=== PATIENT | male | born 1980 | race Hispanic/Latino ===

== ENCOUNTER → 2023-03-25 10:57 | Outpatient (REF) | payer OTHER, SELFPAY ==
[2023-03-25 11:32] LABS: Hematocrit 46.2 % (39.0-52.0); Hemoglobin 16.3 g/dL (13.0-18.0); Mean Corp Hgb Conc. 35.3 g/dL (33.0-37.0); Mean Corpuscular Hgb 29.2 pg (27.0-31.0); Mean Corpuscular Volume 82.6 fL (80.0-94.0); Mean Platelet Volume 8.6 fL (7.4-10.4); Platelet Count 297 10^3/uL (130-400); Red Blood Cell Count 5.59 10^6/uL (4.70-6.10); Red Cell Dist. Width 12.8 % (11.5-14.5); White Blood Cell Count 8.3 10^3/uL (4.8-10.8)
[2023-03-25 12:40] LABS: Glycohemoglobin (HgbA1c) 7.7 % (4.0-5.6)
[2023-03-25 13:02] LABS: ALT (SGPT) 52 U/L (0-50); AST (SGOT) 43 U/L (17-59); Albumin 4.3 g/dl (3.5-5.0); Alkaline Phosphatase 70 U/L (38-126); Blood Urea Nitrogen 15 mg/dl (9-20); Calcium 9.4 mg/dl (8.4-10.2); Carbon Dioxide 25 mmol/L (22-30); Chloride 101 mmol/L (98-107); Glucose 120 mg/dl (70-99); HDL Cholesterol 54 mg/dl; LDL Cholesterol, Calculated 101 mg/dl; Potassium 4.2 mmol/L (3.5-5.1); Sodium 137 mmol/L (135-145); Total Bilirubin 1.1 mg/dl (0.2-1.3); Total Cholesterol 173 mg/dl (50-199); Total Protein 7.4 g/dl (6.3-8.2); Triglyceride 90 mg/dl (10-149); Very Low Density Lipoprotein 18 mg/dl (0-30); eGFR > 60.00
[2023-03-25 13:38] LABS: TSH Reflex To Free T4 0.81 uIU/ml (0.47-4.68)
== END ==
LOC: CLINIC 10:57
PROVIDERS: ATTENDING PHYSICIAN Nurse Practitioner Adult Health
DX: Z00.00 Encounter for general adult medical examination without abnormal findings (principal); E11.9 Type 2 diabetes mellitus without complications
CPT/HCPCS: 36415; 80053; 80061; 83036; 84443; 85027

== ENCOUNTER → 2023-08-05 09:43 | Outpatient (REF) | payer OTHER, SELFPAY ==
[2023-08-05 11:29] LABS: ALT (SGPT) 78 U/L (0-50); AST (SGOT) 53 U/L (17-59); Albumin 4.8 g/dl (3.5-5.0); Alkaline Phosphatase 71 U/L (38-126); Blood Urea Nitrogen 12 mg/dl (9-20); Calcium 9.2 mg/dl (8.4-10.2); Carbon Dioxide 28 mmol/L (22-30); Chloride 102 mmol/L (98-107); Glucose 116 mg/dl (70-99); Potassium 4.7 mmol/L (3.5-5.1); Sodium 138 mmol/L (135-145); Total Bilirubin 1.1 mg/dl (0.2-1.3); eGFR > 60.00
[2023-08-05 13:49] LABS: Glycohemoglobin (HgbA1c) 7.1 % (4.0-5.6)
== END ==
LOC: CLINIC 09:43
PROVIDERS: ATTENDING PHYSICIAN Nurse Practitioner Adult Health
DX: E11.9 Type 2 diabetes mellitus without complications (principal)
CPT/HCPCS: 36415; 80053; 83036

== ENCOUNTER → 2024-02-23 07:37 | Outpatient (REF) | payer OTHER, SELFPAY ==
[2024-02-23 08:51] LABS: Glycohemoglobin (HgbA1c) 7.6 % (4.0-5.6)
[2024-02-23 08:53] LABS: ALT (SGPT) 80 U/L (0-50); AST (SGOT) 45 U/L (17-59); Albumin 4.5 g/dl (3.5-5.0); Alkaline Phosphatase 71 U/L (38-126); Blood Urea Nitrogen 16 mg/dl (9-20); Calcium 8.8 mg/dl (8.4-10.2); Carbon Dioxide 25 mmol/L (22-30); Chloride 102 mmol/L (98-107); Glucose 125 mg/dl (70-99); Potassium 4.6 mmol/L (3.5-5.1); Sodium 138 mmol/L (135-145); Total Bilirubin 0.9 mg/dl (0.2-1.3); Total Protein 7.6 g/dl (6.3-8.2); eGFR > 60.00
== END ==
LOC: REG 07:37
PROVIDERS: ATTENDING PHYSICIAN Nurse Practitioner Adult Health
DX: E11.9 Type 2 diabetes mellitus without complications (principal)
CPT/HCPCS: 36415; 80053; 83036

== ENCOUNTER → 2024-05-23 08:04 | Outpatient (REF) | payer OTHER, SELFPAY ==
[2024-05-23 10:01] LABS: ALT (SGPT) 30 U/L (0-50); AST (SGOT) 27 U/L (17-59); Albumin 4.5 g/dl (3.5-5.0); Alkaline Phosphatase 65 U/L (38-126); Blood Urea Nitrogen 15 mg/dl (9-20); Calcium 9.3 mg/dl (8.4-10.2); Carbon Dioxide 25 mmol/L (22-30); Chloride 105 mmol/L (98-107); Glucose 82 mg/dl (70-99); Potassium 4.4 mmol/L (3.5-5.1); Sodium 140 mmol/L (135-145); Total Bilirubin 1.1 mg/dl (0.2-1.3); Total Protein 7.5 g/dl (6.3-8.2); eGFR > 60.00
[2024-05-23 10:22] LABS: Glycohemoglobin (HgbA1c) 6.5 % (4.0-5.6)
[2024-05-23 17:53] LABS: Hepatitis B Surface Antigen Negative (Negative)
[2024-05-23 18:11] LABS: Hepatitis A Antibody, Total Positive (Negative); Hepatitis B Surface Antibody Negative; Hepatitis C Antibody Negative (Negative)
== END ==
LOC: CLINIC 08:04
PROVIDERS: ATTENDING PHYSICIAN Nurse Practitioner Adult Health
DX: E11.9 Type 2 diabetes mellitus without complications (principal); R74.8 Abnormal levels of other serum enzymes
CPT/HCPCS: 36415; 80053; 83036; 86706; 86708; 86803; 87340

== ENCOUNTER → 2024-08-23 08:06 | Outpatient (REF) | payer OTHER, SELFPAY ==
[2024-08-23 09:55] LABS: Hematocrit 47.1 % (39.0-52.0); Hemoglobin 16.4 g/dL (13.0-18.0); Mean Corp Hgb Conc. 34.8 g/dL (33.0-37.0); Mean Corpuscular Volume 84.3 fL (80.0-94.0); Platelet Count 293 10^3/uL (130-400); Red Cell Dist. Width 12.9 % (11.5-14.5)
[2024-08-23 10:16] LABS: Microalb - Urine Creatinine 315.300 mg/dl
[2024-08-23 10:19] LABS: Microalbumin, Random Urine 2.4 mg/dl (0.6-1.7)
[2024-08-23 10:35] LABS: ALT (SGPT) 30 U/L (0-50); AST (SGOT) 26 U/L (17-59); Albumin 4.8 g/dl (3.5-5.0); Alkaline Phosphatase 57 U/L (38-126); Blood Urea Nitrogen 16 mg/dl (9-20); Calcium 9.2 mg/dl (8.4-10.2); Carbon Dioxide 24 mmol/L (22-30); Chloride 107 mmol/L (98-107); Glucose 102 mg/dl (70-99); HDL Cholesterol 56 mg/dl; LDL Cholesterol, Calculated 127 mg/dl; Potassium 4.4 mmol/L (3.5-5.1); Sodium 138 mmol/L (135-145); Total Protein 8.2 g/dl (6.3-8.2); Very Low Density Lipoprotein 15 mg/dl (0-30); eGFR > 60.00
[2024-08-23 12:10] LABS: Glycohemoglobin (HgbA1c) 6.6 % (4.0-5.6)
== END ==
LOC: REG 08:06
PROVIDERS: ATTENDING PHYSICIAN Nurse Practitioner Adult Health
DX: E11.9 Type 2 diabetes mellitus without complications (principal); R74.8 Abnormal levels of other serum enzymes
CPT/HCPCS: 36415; 80053; 80061; 82043; 82570; 83036; 85027

== ENCOUNTER → 2024-11-28 09:30 | Outpatient (REF) | payer OTHER, SELFPAY ==
[2024-11-28 10:46] LABS: Glycohemoglobin (HgbA1c) 6.8 % (4.0-5.9)
[2024-11-28 11:01] LABS: Microalbumin, Random Urine 2.4 mg/dl (0.6-1.7)
[2024-11-28 11:03] LABS: Blood Urea Nitrogen 15 mg/dl (9-20); Calcium 9.2 mg/dl (8.4-10.2); Carbon Dioxide 26 mmol/L (22-30); Chloride 103 mmol/L (98-107); Glucose 112 mg/dl (70-99); Potassium 4.5 mmol/L (3.5-5.1); Sodium 139 mmol/L (135-145); eGFR > 60.00
[2024-11-28 11:07] LABS: Microalb - Urine Creatinine 273.400 mg/dl
== END ==
LOC: CLINIC 09:30
PROVIDERS: ATTENDING PHYSICIAN Nurse Practitioner Adult Health
DX: E11.9 Type 2 diabetes mellitus without complications (principal); R80.9 Proteinuria, unspecified
CPT/HCPCS: 36415; 80048; 82043; 82570; 83036